=== PATIENT | male | born 1950 | race African-American/Black ===

== ENCOUNTER 2019-07-30 08:10 | Emergency (ER) | payer MEDICARE ==
[~2019-07-30] VITALS: Ht 182.9 cm; Wt 95.3 kg
[2019-07-30] MEDS ORDERED: IV NORMAL SALINE 1000ML BAG 1,000 ML IV SCH (08:17)
--- NOTE | 2019-07-30 08:29 | PHYS DOC ---
Past Medical History Past Medical History: COPD Additional Past Surgical Histo: bowel resection Smoking: Quit Greater Than 1 Year Adult General Chief Complaint Chief Complaint: DYSPNEA/RESPIRATOY DISTRESS HPI HPI Patient is a 69-year-old male who presents to the emergency department via EMS in respiratory distress. He states last night he had the relatively sudden onset of difficulty breathing , and EMS found the patient with his CPAP machine on, something he normally uses at night, with an oxygen saturation in the 80s. They applied oxygen to a CPAP machine with resultant improvement in his oxygenation. The patient denies any pain, and denies any cough. He was discharged from yesterday, after an eight-day hospitalization for a perforated bowel, having had a bowel resection. He denies any chest pain, including any pleuritic pain. He states he has no prior cardiac history. He has not had any cough. There are no alleviating or exacerbating factors to the patient's symptoms, except as noted above. Patient states she is taking an antibiotic, but is uncertain which one he is taking. I was able to review records obtained from . It appears that the patient had an incarcerated, strangulated inguinal hernia, with what was felt to be intraoperative rupture of the incarcerated bowel. Limited records were obtained and reviewed. It appears that the patient was discharged on Augmentin. Review of Systems Review of Systems Constitutional: Denies fever or chills [] Eyes: Denies change in visual acuity, redness, or eye pain [] HENT: Denies nasal congestion or sore throat [] Respiratory: Denies cough or pleuritic pain[] Cardiovascular: No additional information not addressed in HPI [] GI: Denies abdominal pain, nausea, vomiting, bloody stools or diarrhea [] : Denies dysuria or hematuria [] Musculoskeletal: Denies back pain or joint pain [] Integument: Denies rash or skin lesions [] Neurologic: Denies headache, focal weakness or sensory changes [] Endocrine: Denies polyuria or polydipsia [] All other systems were reviewed and found to be within normal limits, except as documented in this note. Current Medications Current Medications Current Medications Medications (Trade) Dose Ordered Sig/Jose Start Time Stop Time Status Last Admin Dose Admin Albuterol/ Ipratropium (Duoneb) 3 ml 1X ONCE 07/30/19 08:30 07/30/19 08:31 DC 07/30/19 08:42 3 ML Info (CONTRAST GIVEN -- Rx MONITORING) 1 each PRN DAILY PRN 07/30/19 09:45 08/01/19 09:44 Iohexol (Omnipaque 350 Mg/ml) 100 ml 1X ONCE 07/30/19 09:30 07/30/19 09:31 DC 07/30/19 09:54 100 ML Piperacillin Sod/ Tazobactam Sod 3.375 gm/Sodium Chloride 50 ml @ 100 mls/hr 1X ONCE 07/30/19 09:15 07/30/19 09:44 DC 07/30/19 09:20 100 MLS/HR Sodium Chloride 1,000 ml @ 1,000 mls/hr 1X ONCE 07/30/19 09:45 07/30/19 10:44 DC Vancomycin HCl 250 ml @ 250 mls/hr 1X ONCE 07/30/19 09:15 07/30/19 10:14 DC 07/30/19 10:34 250 MLS/HR Allergies Allergies Allergies Coded Allergies Type Severity Reaction Last Updated Verified No Known Drug Allergies 07/30/19 No Physical Exam Physical Exam PHYSICAL EXAM: CONSTITUTIONAL: Well developed, well nourished HEAD: normocephalic, atraumatic EENT: PERRL, EOMI. Conjunctivae normal color, sclerae non-icteric; moist mucous membranes. NECK: Supple, non-tender; no meningismus. LUNGS: There are mildly diminished breath sounds diffusely, however the lungs are clear, without any rales, wheezes, or rhonchi. The patient exhibits moderate respiratory distress. HEART: Mild tachycardia, no murmur CHEST: No deformity; non-tender ABDOMEN: The abdomen is soft, there is mild diffuse tenderness to palpation to the abdomen, without rebound or guarding. There is a intact surgical wound in the ventral abdomen, with concha in place. EXTREM: Normal ROM; no deformity, no calf tenderness. Normal pulses palpable in all extremities. There is no pedal edema. SKIN: No rash; no diaphoresis NEURO: Alert; normal speech and cognition; CN's grossly intact; strength grossly intact without focal deficit. BACK: No CVA TTP. Current Patient Data Vital Signs Vital Signs Date Time Temp Pulse Resp B/P (MAP) Pulse Ox O2 Delivery O2 Flow Rate FiO2 07/30/19 10:30 110 18 147/82 (103) 100 Nasal Cannula 3.0 07/30/19 08:10 98.7 98.7 Lab Values Laboratory Tests Test 07/30/19 08:15 07/30/19 08:30 07/30/19 10:25 White Blood Count 16.8 x10^3/uL (4.0-11.0) H Red Blood Count 3.41 x10^6/uL (4.30-5.70) L Hemoglobin 9.9 g/dL (13.0-17.5) L Hematocrit 30.6 % (39.0-53.0) L Mean Corpuscular Volume 90 fL (79-100) Mean Corpuscular Hemoglobin 29 pg (25-35) Mean Corpuscular Hemoglobin Concent 32 g/dL (31-37) Red Cell Distribution Width 14.9 % (11.5-14.5) H Platelet Count 649 x10^3/uL (140-400) H Neutrophils (%) (Auto) 80 % (31-73) H Lymphocytes (%) (Auto) 12 % (24-48) L Monocytes (%) (Auto) 7 % (0-9) Eosinophils (%) (Auto) 1 % (0-3) Basophils (%) (Auto) 1 % (0-3) Neutrophils # (Auto) 13.4 x10^3/uL (1.8-7.7) H Lymphocytes # (Auto) 2.0 x10^3/uL (1.0-4.8) Monocytes # (Auto) 1.2 x10^3/uL (0.0-1.1) H Eosinophils # (Auto) 0.1 x10^3/uL (0.0-0.7) Basophils # (Auto) 0.1 x10^3/uL (0.0-0.2) Segmented Neutrophils % 86 % (35-66) H Lymphocytes % 9 % (24-48) L Monocytes % 4 % (0-10) Basophils % 1 % (0-3) Nucleated Red Blood Cells 1 Platelet Estimate Increased (ADEQUATE) Sodium Level 138 mmol/L (136-145) Potassium Level 4.5 mmol/L (3.5-5.1) Chloride Level 102 mmol/L (98-107) Carbon Dioxide Level 20 mmol/L (21-32) L Anion Gap 16 (6-14) H Blood Urea Nitrogen 12 mg/dL (8-26) Creatinine 1.5 mg/dL (0.7-1.3) H Estimated GFR (Cockcroft-Gault) 56.3 BUN/Creatinine Ratio 8 (6-20) Glucose Level 216 mg/dL (70-99) H Lactic Acid Level 6.2 mmol/L (0.4-2.0) *H Calcium Level 9.0 mg/dL (8.5-10.1) Total Bilirubin 0.6 mg/dL (0.2-1.0) Aspartate Amino Transferase (AST) 21 U/L (15-37) Alanine Aminotransferase (ALT) 27 U/L (16-63) Alkaline Phosphatase 89 U/L (46-116) Troponin I Quantitative < 0.017 ng/mL (0.000-0.055) HM-Uav-M-Type Natriuretic Peptide 75488 pg/mL (0-124) H Total Protein 7.2 g/dL (6.4-8.2) Albumin 2.3 g/dL (3.4-5.0) L Albumin/Globulin Ratio 0.5 (1.0-1.7) L O2 Saturation 98 % (92-99) Arterial Blood pH 7.42 (7.35-7.45) Arterial Blood pCO2 at Patient Temp 27 mmHg (35-46) L Arterial Blood pO2 at Patient Temp 163 mmHg (65-108) H Arterial Blood HCO3 17 mmol/L (21-28) L Arterial Blood Base Excess -6 mmol/L (-3-3) L FiO2 50% Urine Collection Type Unknown Urine Color Yellow Urine Clarity Clear Urine pH 6.5 Urine Specific [place] >=1.030 Urine Protein 100 mg/dL (NEG-TRACE) Urine Glucose (UA) Negative mg/dL (NEG) Urine Ketones (Stick) Negative mg/dL (NEG) Urine Blood Trace (NEG) Urine Nitrite Negative (NEG) Urine Bilirubin Negative (NEG) Urine Urobilinogen Dipstick 0.2 mg/dL (0.2 mg/dL) Urine Leukocyte Esterase Negative (NEG) Urine RBC Occ /HPF (0-2) Urine WBC 1-4 /HPF (0-4) Urine Squamous Epithelial Cells Few /LPF Urine Bacteria Moderate /HPF (0-FEW) Laboratory Tests 07/30/19 08:15 Laboratory Tests 07/30/19 08:15 EKG EKG Sinus tachycardia at a rate of 108 beats for minute, normal axis, normal intervals, nonspecific ST/T changes are present, rare PVCs are present.[] Radiology/Procedures Radiology/Procedures PROCEDURE: PORTABLE CHEST 1V PORTABLE CHEST 1V Clinical indications: Shortness of breath COMPARISON: January 09, 2016. Findings: There is a new right upper lobe lung infiltrate. No pleural effusion or pneumothorax is seen.. The heart size, pulmonary vasculature, mediastinum and both elizabeth are stable. Impression: New right upper lobe lung infiltrate medially. Recommend follow-up chest x-ray in 4-6 weeks after completion of therapy.[] PROCEDURE: CT ANGIO CHEST W ABD PEL W/ Examination: CT ANGIO CHEST W ABD PEL W/ History: Respiratory difficulty, recent abdominal surgery Comparison/Correlation: None Findings: Axial images of the chest were obtained following IV contrast with pulmonary arteriography protocol. Maximum intensity projection images were provided. Axial images of the abdomen and pelvis were also obtained following IV contrast. Sagittal and coronal reformatted images were provided. Motion limits images of the chest throughout the exam. There is no central pulmonary arterial embolic disease. Evaluation of the second and third order branches is mostly nondiagnostic due to motion. [id number] bilateral pleural effusions are present greater on the right. Minimal bibasilar atelectasis noted. No enlarged thoracic lymph nodes. Mild emphysematous involvement of the upper lung snow noted. Reflux of contrast into hepatic veins noted. Liver is unremarkable. Suture material in the subhepatic region noted. Gallbladder fossa is unremarkable. Spleen is unremarkable. Pancreas is unremarkable. The right adrenal gland is normal. There is a 1.3 cm diameter nodule involving the medial limb of the left adrenal gland with appearance consistent with a benign adenoma. Minimal intrahepatic ascites noted. Mild anasarca. Left renal superior pole cyst is present. [place] are noted involving the supraumbilical to the low pelvic midline region. Subtle high density of the lower abdominal mesenteric fat noted presumably related to surgical intervention. No loculated collections. Diverticulosis of the colon is present. No acute inflammation. Bladder is unremarkable. Left inguinal region surgical clips are present. Fluid collection is noted within the right inguinal level subcutaneous fat and measures up to 4.1 cm transverse. This may represent postoperative hematoma or seroma. Moderate L5-S1 disc space narrowing and degenerative change evident. Impression: No central pulmonary arterial thromboembolic disease. Evaluation more distally is nondiagnostic due to respiratory motion. Bilateral pleural effusions and pulmonary vascular congestion Emphysema. Diverticulosis. Right lower abdominal wall fluid collection which may represent an old hematoma or seroma. Course & Med Decision Making Course & Med Decision Making Pertinent Labs and Imaging studies reviewed. (See chart for details) []CRITICAL CARE TIME: 60 Minutes, excluding any procedures and care of other patients. 10:40 AM: The patient's condition remains stable. He is requesting transfer back to , which is reasonable, given he was recently discharged from there. He will benefit from continuity of care. The exact source of his difficulty breathing is unclear. This might be related to cardiac failure, according to records reviewed from he does have a history of cardiomyopathy. No possibility of sepsis, although a source is unclear at this time. He has not provided a urine specimen yet, and the possibility of a UTI, pneumonia, or bacteremia are all in the differential. I have contacted the transfer center to initiate transfer. 11:10 AM: The patient has been accepted by Dr. John Rodrigues at . Will initiate transfer. Dragon Disclaimer Dragon Disclaimer This electronic medical record was generated, in whole or in part, using a voice recognition dictation system. Departure Departure Impression: Primary Impression: Respiratory distress Additional Impressions: Lactic acidosis Pleural effusion Disposition: 02 TRANSFER [facility] Condition: GUARDED Referrals: COMFORT DUARTE MD (PCP) Problem Qualifiers SAMUEL VILLAFANA MD Jul 30, 2019 08:29
[2019-07-30] MEDS ORDERED: IPRATRPIUM/ALBUTEROL 0.5/2.5MG 3 ML NEBU. NEB ONE (08:30)
--- NOTE | 2019-07-30 08:31 | EKG ---
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
[2019-07-30 08:37] LABS: BASE EXCESS ABG -6 mmol/L (-3-3); HCO3 ABG 17 mmol/L (21-28); PCO2 ABG 27 mmHg (35-46); PO2 ABG 163 mmHg (65-108); SAT O2 ABG 98 % (92-99)
[2019-07-30 08:41] LABS: BASO # 0.1 x10^3/uL (0.0-0.2); BASO % 1 % (0-3); EOS # 0.1 x10^3/uL (0.0-0.7); EOS % 1 % (0-3); HEMATOCRIT 30.6 % (39.0-53.0); HEMOGLOBIN 9.9 g/dL (13.0-17.5); LYMPH % 12 % (24-48); MEAN CORPUSCULAR HEMOGLOBIN 29 pg (25-35); MEAN CORPUSCULAR HGB CONC 32 g/dL (31-37); MEAN CORPUSCULAR VOLUME 90 fL (79-100); MONO # 1.2 x10^3/uL (0.0-1.1); MONO % 7 % (0-9); NEUT # 13.4 x10^3/uL (1.8-7.7); NEUT % 80 % (31-73); PLATELET COUNT 649 x10^3/uL (140-400); RED BLOOD COUNT 3.41 x10^6/uL (4.30-5.70); RED CELL DISTRIBUTION WIDTH 14.9 % (11.5-14.5); WHITE BLOOD COUNT 16.8 x10^3/uL (4.0-11.0)
[2019-07-30] MEDS ORDERED: IV NORMAL SALINE 1000ML BAG 1,000 ML IV ONE ×3 (08:45→09:45)
[2019-07-30 08:48] LABS: FIO2 ABG 50%
[2019-07-30 08:53] LABS: CREATININE 1.5 mg/dL (0.7-1.3); GFR 56.3; POTASSIUM 4.5 mmol/L (3.5-5.1)
--- NOTE | 2019-07-30 09:01 | RAD ---
PORTABLE CHEST 1V Clinical indications: Shortness of breath COMPARISON: January 09, 2016. Findings: There is a new right upper lobe lung infiltrate. No pleural effusion or pneumothorax is seen.. The heart size, pulmonary vasculature, mediastinum and both elizabeth are stable. Impression: New right upper lobe lung infiltrate medially. Recommend follow-up chest x-ray in 4-6 weeks after completion of therapy. Electronically signed by: David Nelson MD (07/30/2019 8:59 AM) [id number]
[2019-07-30 09:04] LABS: ALBUMIN 2.3 g/dL (3.4-5.0); ALBUMIN/GLOBULIN RATIO 0.5 (1.0-1.7); TOTAL BILIRUBIN 0.6 mg/dL (0.2-1.0); TOTAL PROTEIN 7.2 g/dL (6.4-8.2)
[2019-07-30] MEDS ORDERED: PIPERACILLIN/TAZOBACTAM 3.375 GM in IV NORMAL SALINE 50ML 50 ML IV ONE (09:15)
[2019-07-30] MEDS ORDERED: VANCOMYCIN 1GM IVPB FOR OMNI 250 ML IV ONE (09:15)
[2019-07-30] MEDS ORDERED: IOHEXOL 350 MG/ML 100 ML VIAL. IV ONE (09:30)
[2019-07-30] MEDS ORDERED: CONTRAST GIVEN. MC PRN (09:45)
[2019-07-30 09:50] LABS: % BASOS 1 % (0-3); % LYMPHS 9 % (24-48); % MONOS 4 % (0-10); % SEGS 86 % (35-66); NUCLEATED RBC 1
[2019-07-30 09:51] LABS: PLT ESTIMATE INCREASED (ADEQUATE)
--- NOTE | 2019-07-30 10:23 | RAD ---
Examination: CT ANGIO CHEST W ABD PEL W/ History: Respiratory difficulty, recent abdominal surgery Comparison/Correlation: None Findings: Axial images of the chest were obtained following IV contrast with pulmonary arteriography protocol. Maximum intensity projection images were provided. Axial images of the abdomen and pelvis were also obtained following IV contrast. Sagittal and coronal reformatted images were provided. Motion limits images of the chest throughout the exam. There is no central pulmonary arterial embolic disease. Evaluation of the second and third order branches is mostly nondiagnostic due to motion. [id number] bilateral pleural effusions are present greater on the right. Minimal bibasilar atelectasis noted. No enlarged thoracic lymph nodes. Mild emphysematous involvement of the upper lung snow noted. Reflux of contrast into hepatic veins noted. Liver is unremarkable. Suture material in the subhepatic region noted. Gallbladder fossa is unremarkable. Spleen is unremarkable. Pancreas is unremarkable. The right adrenal gland is normal. There is a 1.3 cm diameter nodule involving the medial limb of the left adrenal gland with appearance consistent with a benign adenoma. Minimal intrahepatic ascites noted. Mild anasarca. Left renal superior pole cyst is present. [place] are noted involving the supraumbilical to the low pelvic midline region. Subtle high density of the lower abdominal mesenteric fat noted presumably related to surgical intervention. No loculated collections. Diverticulosis of the colon is present. No acute inflammation. Bladder is unremarkable. Left inguinal region surgical clips are present. Fluid collection is noted within the right inguinal level subcutaneous fat and measures up to 4.1 cm transverse. This may represent postoperative hematoma or seroma. Moderate L5-S1 disc space narrowing and degenerative change evident. Impression: No central pulmonary arterial thromboembolic disease. Evaluation more distally is nondiagnostic due to respiratory motion. Bilateral pleural effusions and pulmonary vascular congestion Emphysema. Diverticulosis. Right lower abdominal wall fluid collection which may represent an old hematoma or seroma. Electronically signed by: Herbert Candelario MD (07/30/2019 10:20 AM) [facility]
[2019-07-30 10:34] LABS: BILIRUBIN,URINE NEGATIVE (NEG); CLARITY,URINE CLEAR; COLOR,URINE YELLOW; NITRITE,URINE NEGATIVE (NEG); PH,URINE 6.5; PROTEIN,URINE 100 mg/dL (NEG-TRACE); UROBILINOGEN,URINE 0.2 mg/dL (0.2 mg/dL)
[2019-07-30 11:01] LABS: BACTERIA,URINE MODERATE /HPF (0-FEW); RBC,URINE OCC /HPF (0-2); SQUAMOUS EPITHELIAL CELL,UR FEW /LPF
[2019-07-30 12:30] VITALS: BP 157/88
== END 2019-07-30 12:49 | disposition short-term general hospital (02) ==
LOC: ER 08:10
DX: R06.03 Acute respiratory distress (principal); E87.2 Acidosis; J90 Pleural effusion, not elsewhere classified; J44.9 Chronic obstructive pulmonary disease, unspecified; Z87.891 Personal history of nicotine dependence
CPT/HCPCS: 36415; 36600; 71045; 71275; 74177; 80053; 81001; 82805; 83605; 83880; 84484; 85007; 85025; 87086; 93005; 94640; 94660; 96361; 96365; 96367; 99291; J2543; J3370; J7030; J7620; Q9967

== ENCOUNTER → 2021-05-09 | Outpatient (CLI) | payer MEDICARE ==
[2021-05-09 14:58] LABS: CALCIUM 9.1 mg/dL (8.5-10.1); GFR 40.3; MAGNESIUM 2.1 mg/dL (1.8-2.4); POTASSIUM 4.1 mmol/L (3.5-5.1)
== END ==
LOC: LAB 14:20
PROVIDERS: ATTEND Internal Medicine
DX: R25.2 Cramp and spasm (principal); N18.30 Chronic kidney disease, stage 3 unspecified
CPT/HCPCS: 36415; 80048; 83735